=== PATIENT | female | born 1970 | race African-American/Black ===

== ENCOUNTER 2016-07-27 19:23 | Emergency (ER) | payer SELFPAY ==
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
== END 2016-07-27 20:50 | disposition home or self-care (01) ==
LOC: CFTX 19:23
DX: S80.02XA Contusion of left knee, initial encounter (principal); I10 Essential (primary) hypertension; V43.52XA Car driver injured in collision with other type car in traffic accident, initial encounter
CPT/HCPCS: 29530; 72040; 73562; 96372; 99284; J1885